=== PATIENT | male | born 2005 | race Caucasian/White ===

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

== ENCOUNTER 2025-07-11 06:09 | Emergency (ER) | payer SELFPAY ==
[~2025-07-11] VITALS: Ht 182.8 cm; Wt 90.3 kg
[2025-07-11 06:15] VITALS: BP 120/68
[2025-07-11] MEDS ORDERED: Dexamethasone/Tobramycin OPHTHALMIC 2.5 ML BOTTLE OPH ONE (06:40)
== END 2025-07-11 06:41 | disposition home or self-care (01) ==
LOC: ED 06:09
DX: H16.133 Photokeratitis, bilateral (principal)

== ENCOUNTER 2025-08-20 18:25 | Emergency (ER) | payer SELFPAY ==
[~2025-08-20] VITALS: Wt 81.6 kg
[2025-08-20 18:40] VITALS: BP 121/68
[2025-08-20 21:21] LABS: BASO # 0.1 10*3/uL (0.0-0.1); BASO % 0.3 % (0.0-1.0); EOS # 0.3 10*3/uL (0.0-0.4); EOS % 1.6 % (1.0-4.0); MEAN CELL VOLUME 85.0 fl (80.0-94.0); MEAN CORPUSCULAR HGB 28.8 pg (27.0-31.0); MEAN PLATELET VOLUME 11.0 fl (9.6-12.3); MONO # 1.3 10*3/uL (0.1-1.0); MONO % 8.0 % (3.0-9.0); NEUT # 12.3 10*3/uL (2.3-7.9); NEUT % 77.9 % (47.0-73.0); NUCLEATED RED BLOOD CELL 0.0 % (0.0-0.0); NUCLEATED RED BLOOD CELL 0.0 10*3/uL (0.0-0.0); PLATELET COUNT AUTOMATED 196 10*3/uL (130-400); RED CELL DISTRI WIDTH 12.5 % (0-14.5)
[2025-08-20 21:43] LABS: BUN 11 mg/dl (9-23)
[2025-08-20] MEDS ORDERED: Amoxicillin/Clavulanate Pota 875 MG TAB PO ONE (21:45)
[2025-08-20] MEDS ORDERED: AMOX-CLAV 875-1 EACH PO (21:46)
== END 2025-08-20 21:52 | disposition home or self-care (01) ==
LOC: ED 18:25
PROVIDERS: Nurse Practitioner Family
DX: J02.9 Acute pharyngitis, unspecified (principal); R59.0 Localized enlarged lymph nodes